=== PATIENT | male | born 1975 | race African-American/Black ===

== ENCOUNTER 2017-12-25 21:55 | Emergency (ER) | payer OTHER ==
[2017-12-25] MEDS ORDERED: KETOROLAC 30 MG/ML INJ ONE (22:33)
--- NOTE | 2017-12-25 22:48 | ER ---
Nurse's Notes [facility] Name: Umang Hirsch Age: 42 yrs Sex: Male : 1975 Arrival Date: 12/25/2017 Time: 21:58 Bed 28 Private MD: Diagnosis: Muscle spasm of back Presentation: 12/25 22:03 Presenting complaint: Patient states: I think I pulled a muscle in my neck 2 days ago la1 working out and the pain is getting worse and making it hard to work. Transition of care: patient was not received from another setting of care. Onset of symptoms was December 25, 2017. Care prior to arrival: None. 22:03 Method Of Arrival: Ambulatory la1 22:03 Acuity: ADE 4 la1 Triage Assessment: 22:25 General: Appears uncomfortable, well groomed, well developed, well nourished, Behavior rk2 is calm, cooperative. 22:25 Pain: Complains of pain in neck. Neuro: Level of Consciousness is alert, obeys rk2 commands, Oriented to person, place, time, situation. Respiratory: Airway is patent Respiratory effort is even, unlabored, Respiratory pattern is regular, symmetrical. Derm: Skin is pink, warm \T\ dry. Historical: - Allergies: 22:04 No Known Allergies; la1 - PMHx: 22:04 None; la1 - Immunization history:: Adult Immunizations up to date. - Social history:: Smoking status: Patient/guardian denies using tobacco. Screenin:25 Abuse screen: Denies threats or abuse. rk2 22:25 Nutritional screening: No deficits noted. Tuberculosis screening: No symptoms or risk rk2 factors identified. Fall Risk None identified. Vital Signs: 22:04 BP 134 / 85; Pulse 85; Resp 16; Temp 97.1; Pulse Ox 100% on R/A; Weight 99.79 kg; la1 Height 5 ft. 10 in. (177.80 cm); 22:04 Body Mass Index 31.57 (99.79 kg, 177.80 cm) la1 ED Course: :58 Patient arrived in ED. do 22:04 Triage completed. la1 22:05 Arm band placed on right wrist. la1 22:07 Maco Mccray MD is Attending Physician. ma2 22:09 [place], Charo, RN is Primary Nurse. rk2 22:25 Patient has correct armband on for positive identification. Bed in low position. Call rk2 light in reach. 23:11 No provider procedures requiring assistance completed. Patient did not have IV access rk2 during this emergency room visit. Administered Medications: 22:39 Drug: TORadol 60 mg Route: IM; Site: left deltoid; rk2 23:11 Follow up: Response: No adverse reaction rk2 Outcome: 22:48 Discharge ordered by . jose eduardo 23:11 Discharged to home ambulatory. rk2 23:11 Condition: good 23:11 Discharge instructions given to patient. 23:11 Patient left the ED. rk2 Signatures: Jamir Rajput RN RN la1 Kyara Cintron Mohammad, MD MD ma2 Charo Desir RN RN rk2
--- NOTE | 2017-12-25 22:48 | EDPHYS ---
Physician Documentation [facility] Name: Umang Hirsch Age: 42 yrs Sex: Male : 1975 Arrival Date: 12/25/2017 Time: 21:58 Bed 28 Private MD: ED Physician Maco Mccray HPI: 12/25 22:33 This 42 yrs old Black Male presents to ER via Ambulatory with complaints of Neck Pain. ma2 22:33 neck pain left sided x 2 days constant . ma2 22:45 Onset: The symptoms/episode began/occurred gradually, 1 day(s) ago. Severity of ma2 symptoms: At their worst the symptoms were moderate. Historical: - Allergies: 22:04 No Known Allergies; la1 - PMHx: 22:04 None; la1 - Immunization history:: Adult Immunizations up to date. - Social history:: Smoking status: Patient/guardian denies using tobacco. ROS: 22:45 Constitutional: Negative for fever, chills, and weight loss, Eyes: Negative for injury, ma2 pain, redness, and discharge, ENT: Negative for injury, pain, and discharge, Cardiovascular: Negative for chest pain, palpitations, and edema, Respiratory: Negative for shortness of breath, cough, wheezing, and pleuritic chest pain, Abdomen/GI: Negative for abdominal pain, nausea, diarrhea, and constipation, Back: Negative for injury and pain, : Negative for injury, bleeding, discharge, and swelling, MS/Extremity: Negative for injury and deformity, Skin: Negative for injury, rash, and discoloration, Neuro: Negative for headache, weakness, numbness, tingling, and seizure, Psych: Negative for depression, anxiety, suicide ideation, homicidal ideation, and hallucinations, Allergy/Immunology: Negative for hives, rash, and allergies, Endocrine: Negative for neck swelling, polydipsia, polyuria, polyphagia, and marked weight changes, Hematologic/Lymphatic: Negative for swollen nodes, abnormal bleeding, and unusual bruising. Exam: 22:45 Constitutional: This is a well developed, well nourished patient who is awake, alert, ma2 and in no acute distress. Head/Face: Normocephalic, atraumatic. Eyes: Pupils equal round and reactive to light, extra-ocular motions intact. Lids and lashes normal. Conjunctiva and sclera are non-icteric and not injected. Cornea within normal limits. Periorbital areas with no swelling, redness, or edema. Neck: Trachea midline, no thyromegaly or masses palpated, and no cervical lymphadenopathy. Supple, full range of motion without nuchal rigidity, or vertebral point tenderness. No Meningismus. Chest/axilla: Normal chest wall appearance and motion. Nontender with no deformity. No lesions are appreciated. MS/ Extremity: Pulses equal, no cyanosis. Neurovascular intact. Full, normal range of motion. Neuro: Awake and alert, GCS 15, oriented to person, place, time, and situation. Cranial nerves II-XII grossly intact. Motor strength 5/5 in all extremities. Sensory grossly intact. Cerebellar exam normal. Normal gait. 22:45 Neck: ROM/movement: limited range of motion, that is mild, Meningeal signs: are not present. Vital Signs: 22:04 BP 134 / 85; Pulse 85; Resp 16; Temp 97.1; Pulse Ox 100% on R/A; Weight 99.79 kg; la1 Height 5 ft. 10 in. (177.80 cm); 22:04 Body Mass Index 31.57 (99.79 kg, 177.80 cm) la1 MDM: 22:07 Patient medically screened. ma2 22:45 Differential Diagnosis MSK pain, unlikely frx or neuro pain. ma2 Administered Medications: 22:39 Drug: TORadol 60 mg Route: IM; Site: left deltoid; rk2 23:11 Follow up: Response: No adverse reaction rk2 Disposition: 12/25/17 22:48 Discharged to Home. Impression: Muscle spasm of back. - Condition is Stable. - Prescriptions for Tylenol- Codeine #3 300-30 mg Oral Tablet - take 2 tablet by ORAL route every 6 hours As needed; 30 tablet. Valium 5 mg Oral Tablet - take 1 tablet by ORAL route every 8 hours As needed; 20 tablet. - Medication Reconciliation Form, Thank You Letter, Antibiotic Education, Prescription Opioid Use, Work release form form. - Follow up: Private Physician; When: Tomorrow; Reason: Continuance of care. - Problem is new. - Symptoms have improved. Signatures: Jamir Rajput RN RN la1 Maco Mccray MD MD ma2 [place], Charo, RN RN rk2
== END 2017-12-25 23:11 | disposition home or self-care (01) ==
LOC: ER 21:55
DX: M62.830 Muscle spasm of back (principal)
CPT/HCPCS: 96372; 99283

== ENCOUNTER 2017-12-27 | Emergency (ER) | payer OTHER ==
--- NOTE | 2017-12-27 14:30 | EDPHYS ---
Physician Documentation [facility] Name: Umang Hirsch Age: 42 yrs Sex: Male : 1975 Arrival Date: 12/27/2017 Time: 13:42 Bed 12 Private MD: ED Physician Edgar Bernal HPI: 12/27 14:15 This 42 yrs old Black Male presents to ER via Ambulatory with complaints of Medical rh1 Clearance. 14:15 The patient or guardian complains of pain, that is acute. The symptoms are located on rh1 the base of the skull and right base of the skull. Onset: The symptoms/episode began/occurred 3 day(s) ago. Context: The problem was sustained at a gym, The neck injury/problem resulted from lifting. Associated signs and symptoms: Pertinent negatives: fever, headache, numbness, tingling, weakness. The pain does not radiate. Modifying factors: The symptoms are alleviated by nothing. the symptoms are aggravated by movement. Severity of symptoms: At their worst the symptoms were moderate, in the emergency department the symptoms have improved. The patient has not experienced similar symptoms in the past. The patient has been recently seen at the [facility] Emergency Department, this week. Pt. reports he "pulled a muscle" at right posterior neck while lifting weights 3 days ago. Was seen in ER 2 days ago, and discharged home with a work note, saying he could return today. Reports his pain has improved, but does not feel like he can go back to work today, would like a note saying he can return tomorrow. Denies any worsening of pain, no weakness, paresthesias.. Historical: - Allergies: 13:56 No Known Allergies; hj - Home Meds: 13:56 None [Active]; hj - PMHx: 13:56 None; hj - PSHx: 13:56 None; hj - Immunization history:: Adult Immunizations up to date. - Social history:: Smoking status: Patient/guardian denies using tobacco. ROS: 14:15 Constitutional: Negative for fever rh1 14:15 Neck: Positive for pain with movement, stiffness, tenderness, of the right base of the skull and base of the skull, Negative for pain at rest. 14:15 Abdomen/GI: Negative for nausea and vomiting. 14:15 MS/extremity: Negative for decreased range of motion, pain, paresthesias. 14:15 Neuro: Negative for numbness, tingling, weakness. 14:15 All other systems are negative. Exam: 14:15 Constitutional: This is a well developed, well nourished patient who is awake, alert, rh1 and in no acute distress. Head/Face: Normocephalic, atraumatic. 14:15 Chest/axilla: Normal chest wall appearance and motion. Nontender with no deformity. No lesions are appreciated. Cardiovascular: Regular rate and rhythm with a normal S1 and S2. No gallops, murmurs, or rubs. No JVD. No pulse deficits. Respiratory: Lungs have equal breath sounds bilaterally, clear to auscultation. No rales, rhonchi or wheezes noted. No increased work of breathing. Abdomen/GI: Soft, non-tender, with normal bowel sounds. No distension. No guarding or rebound. No evidence of tenderness throughout. Back: No spinal tenderness. No costovertebral tenderness. Full range of motion. Skin: Warm, dry with normal turgor. Normal color with no rashes, no lesions, and no evidence of cellulitis. 14:15 Neck: External neck: tenderness, that is mild, of the right mid cervical area and right trapezius, C-spine: vertebral tenderness, is not appreciated, crepitus, is not appreciated, ROM/movement: is normal, is supple, no range of motions limitations, no meningismus, no nuchal rigidity, pain, that is mild, with rotation to the left, with rotation to the right, Lymph nodes: no appreciated lymphadenopathy. 14:15 Musculoskeletal/extremity: ROM: full active range of motion, in the right arm, left arm, right leg and left leg, Pulses: are normal with no appreciated deficits, noted to be 2+ in the right radial artery and left radial artery, Perfusion: the extremity is pink, warm, with brisk capillary refill, Sensation intact. 14:15 Neuro: Orientation: is normal, to person, place \\T\\ time. Mentation: is normal, lucid, able to follow commands, Motor: is normal, moves all fours, strength is 5/5 in all extremities, bilateral city carrier 5/5, Sensation: is normal, no obvious gross deficits, numbness, is not appreciated, tingling, is not appreciated, Gait: is steady, at a normal pace, without difficulty. Vital Signs: 13:56 BP 117 / 78; Pulse 63; Resp 18; Temp 98.1(O); Pulse Ox 100% on R/A; Weight 99.79 kg; hj Height 5 ft. 10 in. (177.80 cm); Pain 6/10; 13:56 Body Mass Index 31.57 (99.79 kg, 177.80 cm) hj MDM: 14:15 Patient medically screened. rh1 14:28 Data reviewed: vital signs, nurses notes, old medical records, and as a result, I will rh1 discharge patient. Data interpreted: Pulse oximetry: on room air is 100 %. Interpretation: normal. Counseling: I had a detailed discussion with the patient and/or guardian regarding: the historical points, exam findings, and any diagnostic results supporting the discharge/admit diagnosis, the need for outpatient follow up, a family practitioner, to return to the emergency department if symptoms worsen or persist or if there are any questions or concerns that arise at home. Administered Medications: No medications were administered Disposition: 14:28 cervical sprain. rh1 14:39 Co-signature as Attending Physician, Edgar Bernal MD I agree with the assessment and kdr plan of care. Disposition: 18 14:29 Discharged to Home. Impression: Sprain of ligaments of cervical spine. - Condition is Stable. - Discharge Instructions: Cervical Sprain. - Work release form, Medication Reconciliation Form, Thank You Letter, Antibiotic Education, Prescription Opioid Use form. - Follow up: Private Physician; When: 1 - 2 days; Reason: Recheck today's complaints, Continuance of care, Re-evaluation by your physician. Follow up: Emergency Department; When: As needed; Reason: Fever > 102 F, If symptoms return, Trouble breathing, Worsening of condition. - Problem is new. - Symptoms have improved. Signatures: Edgar Bernal MD MD [facility] Yakelin Noguera RN RN ss Jones, Rachel, NP BENEFITS REPRESENTATIVE rh1 Roney Jay RN RN Corrections: (The following items were deleted from the chart) 14:30 14:28 cervical strain rh1 rh1
--- NOTE | 2017-12-27 14:30 | ER ---
Nurse's Notes [facility] Name: Umang Hirsch Age: 42 yrs Sex: Male : 1975 Arrival Date: 12/27/2017 Time: 13:42 Bed 12 Private MD: Diagnosis: Sprain of ligaments of cervical spine Presentation: 12/27 13:53 Presenting complaint: Patient states: i was here for back pain and neck pain Thursday, hj and i was given a note to return to work today, i cant go to work today, all i need is a note to come back to work tomorrow; pain is 6/10, back pain andneck pain;. Transition of care: patient was not received from another setting of care. Onset of symptoms was December 27, 2017. Care prior to arrival: None. 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 Triage Assessment: 13:56 General: Appears in no apparent distress. uncomfortable, Behavior is calm, cooperative, hj appropriate for age. Pain: Complains of pain in neck, back. Historical: - Allergies: 13:56 No Known Allergies; hj - Home Meds: 13:56 None [Active]; hj - PMHx: 13:56 None; hj - PSHx: 13:56 None; hj - Immunization history:: Adult Immunizations up to date. - Social history:: Smoking status: Patient/guardian denies using tobacco. Screenin:18 Abuse screen: Denies threats or abuse. Denies injuries from another. Nutritional ss screening: No deficits noted. Tuberculosis screening: Never had TB. Fall Risk None identified. Assessment: 14:15 General: Appears in no apparent distress. comfortable, Behavior is calm, cooperative, ss quiet. Pain: Complains of pain in right trapezius and base of the skull Pain currently is 6 out of 10 on a pain scale. Neuro: Level of Consciousness is awake, alert, obeys commands, Oriented to person, place, time, situation. Respiratory: Airway is patent Respiratory effort is even, unlabored. GI: No signs and/or symptoms were reported involving the gastrointestinal system. Derm: Skin is pink, warm \T\ dry. Musculoskeletal: Circulation, motion, and sensation intact. Range of motion: intact in all extremities, Swelling absent. Vital Signs: 13:56 BP 117 / 78; Pulse 63; Resp 18; Temp 98.1(O); Pulse Ox 100% on R/A; Weight 99.79 kg; hj Height 5 ft. 10 in. (177.80 cm); Pain 6/10; 13:56 Body Mass Index 31.57 (99.79 kg, 177.80 cm) hj ED Course: 13:42 Patient arrived in ED. tw3 13:55 Triage completed. hj 13:56 Arm band placed on right wrist. 14:03 Yakelin Noguera, RN is Primary Nurse. ss 14:09 [facility] rh1 14:09 Edgar Bernal MD is Attending Physician. rh1 14:18 Patient has correct armband on for positive identification. Bed in low position. Call ss light in reach. 14:37 No provider procedures requiring assistance completed. Patient did not have IV access ss during this emergency room visit. Administered Medications: No medications were administered Outcome: 14:29 Discharge ordered by . [facility] 14:37 Discharged to home ambulatory. ss 14:37 Condition: good 14:37 Discharge instructions given to patient, Instructed on discharge instructions, follow up and referral plans. medication usage, Demonstrated understanding of instructions, follow-up care, medications. 14:37 Patient left the ED. ss Signatures: Yakelin Noguera RN RN Audrey Gomez NP [employer] [facility] Roney Jay RN RN Asad, Susan tw3 Corrections: (The following items were deleted from the chart) 13:58 13:56 Pulse 63bpm; Resp 18bpm; Pulse Ox 100% RA; Temp 98.1F Oral; 99.79 kg; Height 5 hj ft. 10 in.; BMI: 31.5; Pain 6/10; hj
== END 2017-12-27 14:37 | disposition home or self-care (01) ==
CPT/HCPCS: 99281